=== PATIENT | female | born 1980 | race Caucasian/White ===

== ENCOUNTER 2021-07-31 16:48 | Emergency (ER) | payer MEDICAID, SELFPAY ==
[2021-07-31 17:14] VITALS: BP 143/93; PULSE 58; RESP 18; TEMP 36.8; O2SAT 98; BMI 48.0
--- NOTE | 2021-07-31 17:41 | ED_ITS ---
HPI - Dental/Oral General: Chief complaint: Dental/Oral Stated complaint: DENTAL PAIN Time Seen by Provider: 07/31/21 17:31 History of Present Illness: HPI Narrative: Patient comes in with persistent dental pain. Patient was started on Augmentin yesterday for her dental discomfort. Patient reports just unable to control pain with acetaminophen and ibuprofen. Patient appears well. Patient appears no acute distress. Review of Systems General: Reports: 10 or more systems reviewed and unremarkable except in HPI and below ENMT: Reports: dental pain PFSH ED PFSH: Social History (Updated 07/30/21 @ 17:46 by Esequiel Earl LPN) Smoking and tobacco status: current every day smoker Second hand smoke exposure: Yes Alcohol intake: never Physical Exam Const: COMMON NORMALS: no acute distress and patient oriented x3 GENERAL APPEARANCE: cooperative HENMT: COMMON NORMALS: normocephalic, TM's normal bilaterally and Normal external nose present HEAD & SCALP: normal to inspection and normocephalic NOSE: Normal external nose present TYMPANIC MEMBRANE: TM's normal bilaterally MOUTH: other (Receding gums, erythema to the gums at the upper right molar) THROAT: posterior oropharynx normal and other (No asymmetry or swelling.) Eye: GENERAL EYE: appearance normal, both eyes and all related structures Neck/C-Spine: COMMON NORMALS: full ROM Lymph: LYMPHATIC: no lymphadenopathy noted Chest: COMMONS NORMALS: normal inspection of the chest Resp: COMMON NORMALS: normal respiratory effort EFFORT & INSPECTION: Yes able to speak in complete sentences Cardio: COMMON NORMALS: regular rate and regular rhythm RATE: regular rate RHYTHM: regular rhythm GI: COMMON NORMALS: non-tender Extremity: COMMON NORMALS: normal to inspection Neuro: COMMON NORMALS: patient oriented x3 and moves all extremities Psych: COMMON NORMALS: mental status grossly normal and cooperative Skin: COMMON NORMALS: no rashes or lesions noted GENERAL SKIN EXAM: no rashes or lesions noted Course Vital Signs: Vital signs: Vital Signs Temperature 98.3 F 07/31/21 17:53 Pulse Rate 58 L 07/31/21 17:53 Respiratory Rate 18 07/31/21 17:53 Blood Pressure 143/93 07/31/21 17:53 Pulse Oximetry 98 07/31/21 17:53 MDM - Dental/Oral MDM Narrative: Medical decision making narrative: 41-year-old comes in with dental pain. Patient was started on Augmentin yesterday. On exam we note no obvious abscess to the gumline. Patient does have significant recession of the gums with erythema. Patient reports pain to the upper right molar which has significant decay. Differential diagnosis includes periapical abscess, gingivitis, floor mouth cellulitis. No signs of significant swelling or asymmetry of the posterior pharynx to suggest retropharyngeal abscess. No sign of a significant periapical abscess. Dental pain probably secondary to gingivitis and dental decay. Recommend patient follow-up with dentist for definitive care. Requested case management to assist with Medicaid dental providers. I know there is some [facility] clinics locally that could assist with this. Patient reports understanding and agreed to plan. 5 tablets of hydrocodone acetaminophen was prescribed for the patient review of the record did not indicate any recent prescriptions. Discharge Plan Discharge Patient Disposition: Home Clinical Impression: Toothache, Dental caries Condition: Stable Prescriptions: New Lidocaine Viscous 2 % solution 5 ml mucous membrane QID PRN (Reason: dental pain) Qty: 100 RF: 0 hydrocodone-acetaminophen 5-325 mg tablet 1 tab PO Q8H PRN (Reason: pain (scale score 7-10)) Qty: 5 RF: 0 No Action amoxicillin-pot clavulanate [Augmentin] 875-125 mg tablet 1 tab PO BID 10 Days Qty: 20 RF: 0 Discharge Orders: Discharge ED (Routine); Ordered 07/31/21 Ordered By: Mo Mcgill Discharge Diet: Usual diet Discharge Activity: Increase activity as tolerated Patient Instructions: Toothache (ED), Opioid Safety Activity Restrictions/Additional Instructions: Home and rest. Drink plenty of water with antibiotic. Use medications as direc do. Use acetaminophen and ibuprofen for pain per bottle instructions. Use viscous lidocaine 1 teaspoon swish and hold in mouth until numb and then spit out. Good oral care. Follow-up with dentist for definitive care. Use hydrocodone for severe pain. Coding Level of Care Code ED Improvement Analyst for Chelsey Michel
[2021-07-31 17:53] VITALS: BP 143/93; PULSE 58; RESP 18; TEMP 36.8; O2SAT 98
--- NOTE | 2021-08-01 12:15 | DCPLANNER ---
manager strategic sourcing had message to speak with patient about getting a dentist that takes adult medicaid. manager strategic sourcing called phone [phone], unable to speak with patient and unable to leave a voicemail and did not have a voicemail set up. manager strategic sourcing called patients and gave him the phone to [facility] in [place] that accepts adult medicaid.
== END 2021-07-31 18:00 | disposition home or self-care (01) ==
PROVIDERS: Emergency Provider Nurse Practitioner Family
DX: K02.9 Dental caries, unspecified (principal); F17.210 Nicotine dependence, cigarettes, uncomplicated
CPT/HCPCS: 99281

== ENCOUNTER 2021-10-10 21:06 | Emergency (ER) | payer MEDICAID, SELFPAY ==
[2021-10-10 21:17] VITALS: BP 172/79; PULSE 73; RESP 14; TEMP 36.2; O2SAT 98; BMI 48.0
--- NOTE | 2021-10-10 21:30 | ED_ITS ---
HPI - Dental/Oral General: Chief complaint: Dental/Oral Stated complaint: Lt back tooth pain Time Seen by Provider: 10/10/21 21:24 History of Present Illness: HPI Narrative: Patient with history of dental caries has a tooth that is hurting patient said part of a bad tooth are broke off some more. Teeth map: 1. Dental caries with part of tooth missing. Onset (ago): day(s) Duration: constant Severity: moderate Severity scale (1-10): 4 Relieving factors: nothing Exacerbating factors: chewing, cold and heat Context: history of dental caries and poor dental care Associated symptoms: Reports no associated symptoms; Denies fever(s) Review of Systems Const: Denies: fever(s), chills or body aches Eyes: Denies: change in vision or blurry vision ENMT: Reports: dental pain; Denies: throat pain or nasal congestion Card: Denies: chest pain or dyspnea on exertion Resp: Denies: dyspnea, productive cough or non-productive cough GI: Denies: abdominal pain, nausea or vomiting Musc: Denies: extremity pain Skin/Breast: Denies: rash Neuro: Denies: headache(s) Psych: Denies: anxiety or depression Darvin/Lymph: Denies: easy bruising PFSH ED PFSH: Social History (Updated 07/30/21 @ 17:46 by sEequiel Earl LPN) Smoking and tobacco status: current every day smoker Second hand smoke exposure: Yes Alcohol intake: never Female Reproductive History: Date of last menstrual period: 09/10/21 Physical Exam Const: COMMON NORMALS: no acute distress GENERAL APPEARANCE: cooperative HENMT: TEETH & GINGIVA IMAGES: 1. Discolored fractured tooth Lymph: LYMPHATIC: no lymphadenopathy noted Psych: COMMON NORMALS: mental status grossly normal Course Vital Signs: Vital signs: Vital Signs Temperature 97.2 F L 10/10/21 21:17 Pulse Rate 73 10/10/21 21:17 Respiratory Rate 14 10/10/21 21:17 Blood Pressure 172/79 10/10/21 21:17 Pulse Oximetry 98 10/10/21 21:17 Discharge Plan Discharge Patient Disposition: Home Clinical Impression: Toothache, Dental caries Condition: Stable Prescriptions: New clindamycin HCl 300 mg capsule 300 mg PO Q8H 7 Days Qty: 21 RF: 0 Celebrex 100 mg capsule 100 mg PO BID Qty: 20 RF: 0 No Action amoxicillin-pot clavulanate [Augmentin] 875-125 mg tablet 1 tab PO BID 10 Days Qty: 20 RF: 0 Lidocaine Viscous 2 % solution 5 ml mucous membrane QID PRN (Reason: dental pain) Qty: 100 RF: 0 hydrocodone-acetaminophen 5-325 mg tablet 1 tab PO Q8H PRN (Reason: pain (scale score 7-10)) Qty: 5 RF: 0 Discharge Orders: Discharge ED (Routine); Ordered 10/10/21 Ordered By: Kj Clark Discharge Diet: Usual diet Discharge Activity: Resume usual activity Patient Instructions: Dental Caries (Cavities) Activity Restrictions/Additional Instructions: Take medicine as prescribed. Follow-up with dentist as scheduled. Coding Level of Care Code ED Advanced Quality Engineer for Chelsey Michel
[2021-10-10] MEDS: clindamycin 150 mg Capsule 300 MG PO (21:52)
[2021-10-10] MEDS: CELEcoxib 200 mg Capsule 400 MG PO (21:52)
== END 2021-10-10 21:56 | disposition home or self-care (01) ==
PROVIDERS: Emergency Provider Nurse Practitioner Family
DX: K02.9 Dental caries, unspecified (principal); F17.210 Nicotine dependence, cigarettes, uncomplicated
CPT/HCPCS: 99283

== ENCOUNTER → 2022-10-14 10:37 | Outpatient (BNVA) | payer MEDICAID, SELFPAY | PROVIDERS: Visit Provider Nurse Practitioner Family | DX: R73.9 Hyperglycemia, unspecified (principal) | CPT/HCPCS: 83036 ==

== ENCOUNTER → 2023-01-30 07:53 | Outpatient (BNVA) | payer MEDICAID, SELFPAY | PROVIDERS: PCP Family Medicine; Visit Provider Family Medicine | DX: R73.9 Hyperglycemia, unspecified (principal); E07.9 Disorder of thyroid, unspecified; Z68.42 Body mass index [BMI] 45.0-49.9, adult; Z71.3 Dietary counseling and surveillance; F17.200 Nicotine dependence, unspecified, uncomplicated; Z71.6 Tobacco abuse counseling; G47.30 Sleep apnea, unspecified; R06.83 Snoring | CPT/HCPCS: 80053; 80061; 83036; 84439; 84443; 85025 ==

== ENCOUNTER 2023-03-24 11:07 | Outpatient (CLI) | payer MEDICAID, SELFPAY ==
--- NOTE | 2023-03-24 11:15 | P.DIET_ITS ---
Reason for Visit: Z68.42 - 43479 Medical History, Labs and Background: Pt stated she wants to figure out how to eat healthily, in an economical way, for herself and her family - which includes 5 children, her son's girlfriend and her . One of her children is a type 1 diabetic and one has epilepsy. It is obvious she loves her kids but also has no time for herself. She mentioned having epilepsy at one time and that her blood glucose and cholesterol were high. Height: 5 ft 4 in Weight: 269 lb BMI: 46.3 kg/m2 UBW: Did not mention IBW: 120 lbs Weight History: Nicole said she was thin as a child. When she was older she had epilepsy and she took meds that contributed to her weight gain. After getting and having kids, she has ballooned in her words. Concerns and Goals: The emphasis seems to be eating healthfully with wt loss as a side benefit. She said that the MD recommended to stop smoking by cutting out 1 cigarette a day. We talked about making small changes in lifestyle that will help her and her family, too. She mentioned that around her period she craves bad stuff which to her is candy/ ice cream/ other sweets. Sleep Hygiene: Nicole gets up at 4 am with her and in general doesn't sleep much. In the afternoon she is really tired and just wants something easy for dinner. Physical Activity: MD asked Nicole to do something everyday for 30 minutes that got her heart rate up to a certain level. She said they aren't very active as a family. Feeding Issues: Difficulty Chewing and Difficulty Swallowing Other Feeding Issues: Nicole's teeth are in bad shape so she likes soft foods or things cut up in small pieces. Food Allergies and Sensitivities: Caesar salad dressing caused hives when she was a child, but nothing else has caused a reaction. Meds, Supplements & Other: Phentermine. She was on Ozempic but can't afford it anymore. 24 Hour Recall: Breakfast Time: 4:30 am coffee with turkish vanilla creamer Snack Time:water Lunch Time: Noon - 1/2 wrap from [employer] that had chx breast, lettuce william. fried peppars Snack Time:None Dinner Time: Lorri cheese steak on wheat sub roll w/peppars/onions/ some cheese, Cheetos Snack Time:None Eating Out: They eat out maybe 5-6 times/month Soda vs Milk vs Water: Mostly drinks water, 1 cup coffee+creamer in morning. Sometimes she will substitute soda for water Additional Comments: Overall, Nicole was discouraged with her weight and is motivated to do better for herself and for her family - especially for her child w/type 1 diabetes. She has had a lifetime of failure w/diets and counting calories and buying certain foods. Her family is her biggest support and they want to eat more healthily too. In general she is tired and therefore doesn't plan and has not so healthy snacks around the house. Once she has fallen off the wagon in her words, then she gives up and stops whatever diet plan she is on. Their budget is tight and she said at the end of the month she had to be pretty careful. We came up with some ideas to make small changes. First she needs to eat in the morning (we discussed smoothie ideas) and try to have at least 3 meals/day. From her 24 hour recall, there is virtually nothing before dinner and then she is vulnerable in the evening to snack on bad stuff - because she is legitimately hungry. Next is to keep drinking water as she has been doing. Also, she wanted a website for meals that are basic and nutritious for large families and I will find that and email it today. Lastly we discussed doing some activity (probably walking) for 15 minutes a day. It could be with family or with her or by herself. She felt like that was doable. Because I am emailing her some websites, I told her we could keep in touch that way and I would be available to help in whatever way she needed. She truly wants to change things and we discussed it needs to be small and basic like asking the 2 questions, Am I hungry and after eating Am I full . And to realize she might fall off the wagon but she can get back up the next day and keep going. Recommendations: Included above are initial recommendations Coding Level of Care Code Nutrition/Individ/Init 60 min Time Spent (min) 60 Comment Meeting was from 11:15-12:15
--- NOTE | 2023-04-01 16:52 | OP.DCCON ---
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 She is concerned about her blood glucose and cholesterol and wants to lose weight. Before she was on Ozempic, but not anymore - and she takes Phentermine. Height: 5 ft 4 in Weight: 269 lb BMI: 46.3 kg/m2 IBW: 120 lbs Weight History: As a child Nicole was thin and then was diagnosed with epilepsy. She started medication and gained weight so that in high school, Nicole weighed around 180 lbs. After having children she gained more weight. Concerns and Goals: Her oldest child is a type 1 diabetic and so for his sake and hers, she wants to eat more healthily. Sleep Hygiene: Nicole goes to bed around 10:00 pm. Physical Activity: She doesn't exercise much - maybe a family walk as she likes doing things with her and children Feeding Issues: Difficulty Chewing and Poor Dentition Other Feeding Issues: Because of issues with her teeth she cuts up food into small pieces and tends to prefer softer foods. Food Allergies and Sensitivities: NKA to foods other then Caesar Salad Dressing Meds, Supplements & Other: Phentermine, Ozempic - but not for last 2 weeks 24 Hour Recall: Breakfast Time: 4:30-5 Has coffee w/ before he goes to work Snack Time: Drinks water Lunch Time:12:00 [facility], let/william/fr. peppars Snack Time: Stopped snacking (trying to anyway) Dinner Time: 6 pm jacques cheese stk sub/wheat bread+peppars+onions-some cheese, Cheetos Snack Time: Trying to avoid bad stuff - candy/IC - especially around period Eating Out: Nicole said they don't eat out much. Soda vs Milk vs Water: She drinks 4-6 x 32 ounces water/day Additional Comments: Nicole seemed discouraged and down and at first would barely look at me. The more we talked, the more relaxed she became. Her and family are supportive and want to help her. Recommendations: Assessment: Nicole would like to figure out how to feed herself and her family healthily while being on a budget. She loves being with her family and they do a lot together. 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 Diagnosis: Excessive energy intake r/t habits and patterns AEB BMI of 46.3 kg/m2. Interventions: We discussed the diabetic diet and I gave some handouts about label reading, Carb counting, and the MyPlate diabetic version so that she would be able to help her son who she says doesn't eat will and herself. Drinking 406 32 ounce bottles/day seemed excessive so I recommended 2-4/day. Nicole gave me her email and I sent her websites that had meal plans on a budget for big families. We discussed getting out and walking as a family in the evening instead of all of them being on their phones and watching shows and she thought that would be good. Monitoring and Intervention: Because of sending the websites, Nicole has my email so we can keep in touch and I told her she could send any questions or ask for other websites and I'd be happy to help. Coding Level of Care Code Nutrition/Sub/60 min
--- NOTE | 2023-04-01 17:13 | P.DIET_ITS ---
Reason for Visit: Z68.42 - [id number] 24 Hour Recall: Breakfast Time: Snack Time: Lunch Time: Snack Time: Dinner Time: Snack Time: Coding Level of Care Code Nutrition/Individ/Init 60 min
--- NOTE | 2023-04-01 17:13 | OP.DCCON ---
Reason for Visit: Z68.42 - [id number] 24 Hour Recall: Breakfast Time: Snack Time: Lunch Time: Snack Time: Dinner Time: Snack Time: Coding Level of Care Code Nutrition/Individ/Init 60 min
== END 2023-03-24 11:08 | disposition home or self-care (01) ==
LOC: DIET 11:09
PROVIDERS: PCP Family Medicine; Visit Provider Family Medicine
DX: Z71.3 Dietary counseling and surveillance (principal); Z68.42 Body mass index [BMI] 45.0-49.9, adult
CPT/HCPCS: 80053; 80061; 83036; 84439; 84443; 85025; 97802

== ENCOUNTER 2023-03-30 10:30 | Outpatient (CLI) | payer MEDICAID, SELFPAY | END 2023-03-30 10:31 | disposition home or self-care (01) | LOC: SLEEP 04-01 15:03 | PROVIDERS: PCP Family Medicine; Visit Provider Family Medicine | DX: G47.10 Hypersomnia, unspecified (principal); G47.33 Obstructive sleep apnea (adult) (pediatric) | CPT/HCPCS: G0399 ==